=== PATIENT | female | born 1960 | race Caucasian/White ===

== ENCOUNTER 2021-08-29 14:47 | Inpatient (IN) | payer MEDICAID ==
[~2021-08-29] VITALS: Ht 167.6 cm; Wt 48.0 kg
[2021-08-29] MEDS ORDERED: vancomycin 250MG/10ML UD oral solution 10ML BOTTLE PO STA (15:02)
--- NOTE | 2021-08-29 15:02 | NUR ---
THE ONLY PERSON THAT HAVE ANY INFO ON PT IS STEFFANIE DESAI PT SISTER [phone]
[2021-08-29] MEDS ORDERED: vancomycin 125mg/5ml ORAL solution 5ml UD oral syringe PO STA (15:05)
[2021-08-29 15:24] LABS: BASOPHILS # (AUTO) 0.2 X10'3 (0-0.2); BASOPHILS % (AUTO) 1.3 % (0-1); EOSINOPHILS # (AUTO) 0.1 X10'3 (0-0.9); EOSINOPHILS % (AUTO) 1.1 % (0-6); HEMATOCRIT 27.8 % (35.0-45.0); HEMOGLOBIN 8.9 g/dl (12.0-16.0); LYMPHOCYTES # (AUTO) 1.7 X10'3 (1.1-4.8); MEAN CORPUSCULAR HEMOGLOBIN 30.6 PG (27.0-31.0); MEAN CORPUSCULAR HGB CONC 31.9 g/dL (33.0-36.5); MEAN CORPUSCULAR VOLUME 96.1 FL (78-98); MEAN PLATELET VOLUME 7.9 FL (7.4-10.4); MONOCYTES % (AUTO) 8.1 % (2-12); NEUTROPHILS # (AUTO) 9.3 X10'3 (1.8-7.7); NEUTROPHILS % (AUTO) 75.5 % (42-75); PLATELET COUNT 301 X10'3 (140-440); RED BLOOD COUNT 2.89 X10'6 (4.20-5.60); RED CELL DISTRIBUTION WIDTH 17.1 % (11.5-14.5); WHITE BLOOD COUNT 12.3 X10'3 (4.5-11.0)
[2021-08-29 15:56] LABS: ALANINE AMINOTRANSFERASE 32 U/L (12-78); ALBUMIN 2.2 G/DL (3.4-5.0); ALBUMIN/GLOBULIN RATIO 0.4 (1.1-1.5); ANION GAP 13 (8-16); ASPARTATE AMINO TRANSFERASE 64 U/L (10-37); BILIRUBIN,TOTAL 0.5 MG/DL (0.1-1.0); BLOOD UREA NITROGEN 18 MG/DL (7-18); BUN/CREATININE RATIO 20.9 (6.6-38.0); CALCIUM 9.2 MG/DL (8.5-10.1); CHLORIDE 100 MMOL/L (99-107); CREATININE 0.86 MG/DL (0.40-0.90); GLUCOSE 98 MG/DL (70-104); SODIUM 138 MMOL/L (135-145); TOTAL CARBON DIOXIDE 25.4 MMOL/L (24-32); TOTAL PROTEIN 7.5 G/DL (6.4-8.2); eGFR 67 ML/MIN
[2021-08-29 16:36] LABS: ALKALINE PHOSPHATASE 1892 IU/L (46-116)
[2021-08-29] MEDS ORDERED: normal saline 1000ML IV soln IV ONE (17:05)
--- NOTE | 2021-08-29 17:19 | NUR ---
called pharmacy for vancomycin oral med sent a tech to get te meds ,pt going to ct scan ,will start the iv onces pt is back .
[2021-08-29 18:28] LABS: CLARITY,URINE TURBID (Clear); COLOR,URINE YELLOW (Yellow); PROTEIN,URINE 100 mg/dl (Neg); UA COLLECTION TYPE STRAIGHT CATH
[2021-08-29 18:29] LABS: GLUCOSE, URINE NEGATIVE (Neg); KETONES,URINE NEGATIVE (Neg); LEUKOCYTE ESTERASE ,URINE MODERATE (Neg); NITRITES, URINE POSITIVE (Neg); OCCULT BLOOD,URINE LARGE (Neg); UROBILINOGEN,URINE 0.2 E.U/dL (0.2-1.0)
[2021-08-29 18:31] LABS: SQUAMOUS EPITHELIAL CELL,UR MODERATE /LPF (FEW); TRANSITIONAL EPI CELLS,URINE FEW /HPF
[2021-08-29 18:32] LABS: BACTERIA,URINE 4+ /HPF (Neg); WBC,URINE TNTC /HPF (0-4)
[2021-08-29 18:48] LABS: URINE AMPHETAMINE SCREEN NEGATIVE (Neg); URINE BARBITUATE SCREEN NEGATIVE (Neg); URINE BENZODIAZEPINES SCREEN NEGATIVE (Neg); URINE CANNABINOID SCREEN POSITIVE (Neg); URINE COCAINE SCREEN NEGATIVE (Neg); URINE METHADONE SCREEN NEGATIVE (Neg); URINE OPIATE SCREEN POSITIVE (Neg); URINE PHENCYCLIDINE SCREEN NEGATIVE (Neg)
--- NOTE | 2021-08-29 19:10 | NUR ---
SISTER, STEFFANIE, IS AT BEDSIDE. DR ELENA IS AT BEDSIDE EXAMINING PT. PT IS CRYING AND REQUESTING PAIN MEDICATION. NO OTHER COMPLAINTS AT PRESENT. FLUIDS ARE RUNNING. SISTER WILL GET PT'S MED LIST
--- NOTE | 2021-08-29 19:10 | NUR ---
Todd chávez in [facility] - 08/29/21 at 1910 by ALEX1 DARLINE GOLDEN
[2021-08-29] MEDS ORDERED: morphine 2 MG/ML inj. syringe IV ONE (19:15)
[2021-08-29] MEDS ORDERED: mag hydrox/Alum hydrox/simeth 30ml oral suspension PO PRN (19:30)
[2021-08-29] MEDS ORDERED: acetaminophen 325mg tablet PO PRN (19:30)
[2021-08-29] MEDS ORDERED: magnesium hydroxide 30ml (MOM) UD suspension PO PRN (19:30)
[2021-08-29] MEDS ORDERED: potassium Cl 40MEQ/1/2NS 520ml 520 ML IV PRN ×2 (19:30)
[2021-08-29] MEDS ORDERED: potassium Cl 20 mEq SR tablet PO PRN ×2 (19:30)
[2021-08-29] MEDS ORDERED: ondansetron/PF 4mg/2ml inj IV PRN (19:30)
[2021-08-29] MEDS: docusate sod 100mg capsule PO SCH (20:00)
[2021-08-29] MEDS ORDERED: heparin, porcine 5000 units/ml vial SQ SCH (20:00)
[2021-08-29] MEDS: CefTRIAXone/D5W-Rocephin 1gm 50 ML IV SCH (20:00)
[2021-08-29] MEDS: K and/or MAG REPLACEMENT MC SCH (20:00)
[2021-08-29] MEDS ORDERED: CefTRIAXone/D5W-Rocephin 1gm 50 ML IV ONE (20:10)
[2021-08-29] MEDS ORDERED: CYCL5TAB79 PO (20:41)
[2021-08-29] MEDS ORDERED: APIX2.5T PO (20:41)
[2021-08-29] MEDS ORDERED: MORP-92 PO (20:41)
[2021-08-29] MEDS ORDERED: LYR75C PO (20:41)
[2021-08-29] MEDS ORDERED: ONDA-103 PO (20:41)
[2021-08-29] MEDS ORDERED: OXYC10TA47 PO (20:41)
[2021-08-29] MEDS: potassium Cl 20mEq in NS 1,000 ML IV SCH (20:53)
[2021-08-29] MEDS: vancomycin 125mg/5ml ORAL solution 5ml UD oral syringe PO SCH (21:42)
[2021-08-29] MEDS: oxyCODONE IR 5mg (immed. release) tablet PO PRN (21:43)
--- NOTE | 2021-08-29 21:44 | NUR ---
PT SLEEPING COMFORTABLE. 3 ATTEMPTS WERE MADE TO START A SECOND LINE. ONLY HAS A #20 ON RIGHT AC.
[2021-08-30] MEDS: vancomycin 125mg/5ml ORAL solution 5ml UD oral syringe PO SCH ×2 (01:59→07:50)
[2021-08-30] MEDS: morphine 2 MG/ML inj. syringe IV PRN ×2 (02:00→22:29)
[2021-08-30 02:13] VITALS: BP 133/76
[2021-08-30] MEDS: oxyCODONE IR 5mg (immed. release) tablet PO PRN (04:54)
[2021-08-30] MEDS: potassium Cl 20mEq in NS 1,000 ML IV SCH ×2 (05:30→13:47)
[2021-08-30 07:37] VITALS: BP 116/71
[2021-08-30] MEDS: docusate sod 100mg capsule PO SCH ×2 (07:44→18:36)
[2021-08-30] MEDS: pregabalin 75mg capsule PO SCH ×2 (07:50→21:18)
[2021-08-30] MEDS: morphine ER 15mg tablet PO SCH ×2 (07:50→21:18)
[2021-08-30] MEDS: apixaban 2.5mg tablet PO SCH ×2 (07:51→21:18)
[2021-08-30] MEDS: K and/or MAG REPLACEMENT MC SCH ×2 (08:00→20:00)
[2021-08-30 11:00] VITALS: BP 134/88
[2021-08-30 11:08] LABS: C DIFF ANTIGEN NEGATIVE (NEGATIVE); C DIFF SPECIMEN=DIARRHEA? ACCEPTABLE; C DIFFICILE TOXINS A&B NEGATIVE (Neg)
[2021-08-30 11:31] LABS: BASOPHILS # (AUTO) 0.1 X10'3 (0-0.2); BASOPHILS % (AUTO) 0.8 % (0-1); EOSINOPHILS # (AUTO) 0.1 X10'3 (0-0.9); EOSINOPHILS % (AUTO) 0.9 % (0-6); HEMATOCRIT 26.7 % (35.0-45.0); HEMOGLOBIN 8.6 g/dl (12.0-16.0); LYMPHOCYTES # (AUTO) 1.3 X10'3 (1.1-4.8); MEAN CORPUSCULAR HEMOGLOBIN 31.1 PG (27.0-31.0); MEAN CORPUSCULAR HGB CONC 32.1 g/dL (33.0-36.5); MEAN PLATELET VOLUME 8.1 FL (7.4-10.4); MONOCYTES # (AUTO) 0.7 X10'3 (0-0.9); MONOCYTES % (AUTO) 7.3 % (2-12); NEUTROPHILS # (AUTO) 7.6 X10'3 (1.8-7.7); PLATELET COUNT 249 X10'3 (140-440); RED BLOOD COUNT 2.75 X10'6 (4.20-5.60); RED CELL DISTRIBUTION WIDTH 16.9 % (11.5-14.5); WHITE BLOOD COUNT 9.8 X10'3 (4.5-11.0)
[2021-08-30 11:55] LABS: ALANINE AMINOTRANSFERASE 30 U/L (12-78); ALBUMIN/GLOBULIN RATIO 0.4 (1.1-1.5); ANION GAP 14 (8-16); ASPARTATE AMINO TRANSFERASE 59 U/L (10-37); BILIRUBIN,TOTAL 0.4 MG/DL (0.1-1.0); BLOOD UREA NITROGEN 13 MG/DL (7-18); BUN/CREATININE RATIO 18.3 (6.6-38.0); CALCIUM 8.3 MG/DL (8.5-10.1); CHLORIDE 106 MMOL/L (99-107); CREATININE 0.71 MG/DL (0.40-0.90); GLUCOSE 79 MG/DL (70-104); POTASSIUM 4.2 MMOL/L (3.5-5.1); SODIUM 142 MMOL/L (135-145); TOTAL CARBON DIOXIDE 22.4 MMOL/L (24-32); eGFR 84 ML/MIN
[2021-08-30 12:01] LABS: ALKALINE PHOSPHATASE 1464 IU/L (46-116)
--- NOTE | 2021-08-30 13:25 | NUR ---
I was about to hook another IVF for this patient after my charge nurse Lenore told me that I need to hang a new IV bag, within like 2-3 minutes Lenore came by to me to check my patient in her room as she landed on the floor. When I went to the room Citlali CASTILLO and Corine RN were both in the room assisting my patient back to bed. Patient found sitting on the floor while holding on to the bedside table. Patient admitted that she got dizzy prior to the event and that she was trying to get to the bedside commode. Patient has stool on her gown, we cleaned her up and put a new gown on. There were no noted injury upon assessing her. Vital signs was taken after getting her back to bed. Tab alarm was placed and fall risk armband applied. 13:43 - paged Dr. Leonard regarding the above
--- NOTE | 2021-08-30 14:07 | NUR ---
Low BMI Screen: Pt admit DX AMS, UTI, and diarrhea hx adrenal and stage IV lung CA on chemotherapy last 3 weeks ago per EMR. C.diff negative per EMR. BMI 16.2 though pending scaled wt at this time w/ no prior wt hx. Pt AOx1 per EMR sleeping during RD visit. Pt does have visible temporal and bilateral arms wasting present. RD contacted pt sister/caregiver Elyssa who reports has been taking care of pt past 11 days [employer]. Elyssa reports pt has had low appetite w/ persistent abdominal pain/diarrhea mainly eats only after encouragement. Elyssa reports pt does drink shakes on occasion and likes broccoli soup as well as spaghetti. Will add milkshakes TIDWM for additional kcals; dietary notified. PO pending on regular diet this admit. Given predicted suboptimal intake hx in addition to visible muscle/fat wasting present pt meets minimum severe malnutrition criteria; MD notified. Will continue to monitor for additional nutrition intervention needs pending PO hx this admit. Rec: 1. continue regular diet; encourage PO 2. milkshakes TIDWM since pt drinks per caregiver; encourage PO 3. monitor for ONS needs pending further PO hx this admit 4. bowel care per rx; consider routine anti-diarrheal per MD discretion 5. scaled wt this admit; subsequent weekly wts Addendum: 08/30/21 at [address] Amended: Links added.
--- NOTE | 2021-08-30 18:10 | NUR ---
Patient in room ZENA 341. [facility] and had the opportunity to ask questions and assume patient care.
[2021-08-30 20:00] VITALS: BP 128/85
[2021-08-30] MEDS ORDERED: lactobacillus rhamnosus 10,000 MMU CELLS/CAPSULE PO SCH (20:00)
[2021-08-30] MEDS: CefTRIAXone/D5W-Rocephin 1gm 50 ML IV SCH (21:18)
[2021-08-30] MEDS ORDERED: mag hydrox/Alum hydrox/simeth 30ml oral suspension NG PRN (22:04)
[2021-08-30] MEDS ORDERED: magnesium hydroxide 30ml (MOM) UD suspension NG PRN (22:04)
[2021-08-30] MEDS ORDERED: potassium Cl 20 mEq SR tablet NG PRN ×2 (22:05→22:06)
[2021-08-30] MEDS ORDERED: acetaminophen 325mg tablet NG PRN (22:06)
[2021-08-31] VITALS: BP 128/85
[2021-08-31] MEDS: potassium Cl 20mEq in NS 1,000 ML IV SCH ×3 (02:08→22:47)
[2021-08-31] MEDS: morphine 2 MG/ML inj. syringe IV PRN ×3 (02:14→21:23)
[2021-08-31 02:41] LABS: BASOPHILS # (AUTO) 0.1 X10'3 (0-0.2); EOSINOPHILS # (AUTO) 0.2 X10'3 (0-0.9); EOSINOPHILS % (AUTO) 1.8 % (0-6); HEMATOCRIT 22.3 % (35.0-45.0); HEMOGLOBIN 7.1 g/dl (12.0-16.0); LYMPHOCYTES # (AUTO) 1.3 X10'3 (1.1-4.8); LYMPHOCYTES % (AUTO) 13.7 % (21-51); MEAN CORPUSCULAR HEMOGLOBIN 30.6 PG (27.0-31.0); MEAN CORPUSCULAR VOLUME 95.6 FL (78-98); MONOCYTES # (AUTO) 0.7 X10'3 (0-0.9); MONOCYTES % (AUTO) 7.8 % (2-12); NEUTROPHILS % (AUTO) 75.7 % (42-75); PLATELET COUNT 238 X10'3 (140-440); RED BLOOD COUNT 2.33 X10'6 (4.20-5.60); WHITE BLOOD COUNT 9.3 X10'3 (4.5-11.0)
[2021-08-31 03:13] LABS: ALANINE AMINOTRANSFERASE 11 U/L (12-78); ALBUMIN 1.8 G/DL (3.4-5.0); ALBUMIN/GLOBULIN RATIO 0.4 (1.1-1.5); ANION GAP 12 (8-16); ASPARTATE AMINO TRANSFERASE 50 U/L (10-37); BILIRUBIN,TOTAL 0.3 MG/DL (0.1-1.0); BLOOD UREA NITROGEN 10 MG/DL (7-18); BUN/CREATININE RATIO 16.1 (6.6-38.0); CHLORIDE 107 MMOL/L (99-107); CREATININE 0.62 MG/DL (0.40-0.90); GLUCOSE 91 MG/DL (70-104); POTASSIUM 3.9 MMOL/L (3.5-5.1); SODIUM 142 MMOL/L (135-145); TOTAL CARBON DIOXIDE 22.8 MMOL/L (24-32); TOTAL PROTEIN 6.2 G/DL (6.4-8.2); eGFR > 90 ML/MIN
[2021-08-31 03:36] LABS: ALKALINE PHOSPHATASE 1372 IU/L (46-116)
--- NOTE | 2021-08-31 05:47 | NUR ---
This RN informed Dr Jackson via telephone of pt's drop in Hgb and Hct. MD will review chart and place orders as needed. Pt in no apparent distress.
--- NOTE | 2021-08-31 06:24 | NUR ---
Problems reprioritized. Patient report given, questions answered & plan of care reviewed with ANNA Peña .
--- NOTE | 2021-08-31 06:30 | NUR ---
Patient in room ZENA 357b. I have received report from Antoinette CASTILLO and had the opportunity to ask questions and assume patient care.
[2021-08-31 07:00] VITALS: BP 121/80
[2021-08-31] MEDS: K and/or MAG REPLACEMENT MC SCH ×2 (08:00→20:00)
[2021-08-31] MEDS: morphine ER 15mg tablet PO SCH ×2 (09:59→19:57)
[2021-08-31] MEDS: docusate sodium 100mg/10ml UD cup NG SCH ×2 (09:59→19:57)
[2021-08-31] MEDS: lactobacillus rhamnosus 10,000 MMU CELLS/CAPSULE NG SCH ×2 (10:00→19:57)
[2021-08-31] MEDS: pregabalin 75mg capsule NG SCH ×2 (10:00→19:57)
[2021-08-31] MEDS: apixaban 2.5mg tablet NG SCH ×2 (10:00→19:57)
[2021-08-31 12:00] VITALS: BP 124/85
--- NOTE | 2021-08-31 16:13 | NUR ---
PAGER ID: [phone] MESSAGE: Casey Surg [phone] RE: [id number] Jared Marie calling sister for care. Found the phone number in her chart. Phuong is working on it.
--- NOTE | 2021-08-31 18:30 | NUR ---
Patient in room ZENA 357b. I have received report from ANNA Peña and had the opportunity to ask questions and assume patient care.
[2021-08-31] MEDS: CefTRIAXone/D5W-Rocephin 1gm 50 ML IV SCH (19:56)
[2021-08-31] MEDS ORDERED: LORazepam 2 mg/ml vial IV ONE (23:25)
[2021-09-01] VITALS: BP 139/89
[2021-09-01] MEDS: morphine 2 MG/ML inj. syringe IV PRN ×2 (03:34→12:10)
[2021-09-01 06:30] VITALS: BP 141/80
--- NOTE | 2021-09-01 06:40 | NUR ---
Patient in room ZENA 357. I have received report from ANNA Curry and had the opportunity to ask questions and assume patient care.
[2021-09-01] MEDS: potassium Cl 20mEq in NS 1,000 ML IV SCH ×2 (07:30→14:00)
--- NOTE | 2021-09-01 11:00 | NUR ---
Pt refused VS check
[2021-09-01] MEDS: docusate sodium 100mg/10ml UD cup NG SCH ×3 (11:30→20:00)
[2021-09-01] MEDS: lactobacillus rhamnosus 10,000 MMU CELLS/CAPSULE NG SCH ×3 (11:30→20:00)
[2021-09-01] MEDS: apixaban 2.5mg tablet NG SCH ×3 (11:31→20:00)
[2021-09-01] MEDS: morphine ER 15mg tablet PO SCH ×3 (11:31→20:00)
[2021-09-01] MEDS: pregabalin 75mg capsule NG SCH ×3 (11:31→20:00)
[2021-09-01 11:34] LABS: BASOPHILS # (AUTO) 0.3 X10'3 (0-0.2); BASOPHILS % (AUTO) 2.4 % (0-1); EOSINOPHILS # (AUTO) 0.1 X10'3 (0-0.9); EOSINOPHILS % (AUTO) 0.4 % (0-6); HEMATOCRIT 29.2 % (35.0-45.0); HEMOGLOBIN 9.1 g/dl (12.0-16.0); LYMPHOCYTES # (AUTO) 0.9 X10'3 (1.1-4.8); LYMPHOCYTES % (AUTO) 7.6 % (21-51); MEAN CORPUSCULAR HEMOGLOBIN 30.4 PG (27.0-31.0); MEAN CORPUSCULAR HGB CONC 31.3 g/dL (33.0-36.5); MEAN CORPUSCULAR VOLUME 97.2 FL (78-98); MONOCYTES # (AUTO) 0.6 X10'3 (0-0.9); MONOCYTES % (AUTO) 4.9 % (2-12); NEUTROPHILS # (AUTO) 9.7 X10'3 (1.8-7.7); NEUTROPHILS % (AUTO) 84.7 % (42-75); PLATELET COUNT 241 X10'3 (140-440); RED CELL DISTRIBUTION WIDTH 17.1 % (11.5-14.5); WHITE BLOOD COUNT 11.4 X10'3 (4.5-11.0)
[2021-09-01 11:55] LABS: ALANINE AMINOTRANSFERASE 23 U/L (12-78); ALBUMIN 2.1 G/DL (3.4-5.0); ALBUMIN/GLOBULIN RATIO 0.4 (1.1-1.5); ANION GAP 9 (8-16); ASPARTATE AMINO TRANSFERASE 44 U/L (10-37); BILIRUBIN,TOTAL 0.5 MG/DL (0.1-1.0); BLOOD UREA NITROGEN 6 MG/DL (7-18); BUN/CREATININE RATIO 8.6 (6.6-38.0); CALCIUM 9.2 MG/DL (8.5-10.1); CHLORIDE 107 MMOL/L (99-107); GLUCOSE 97 MG/DL (70-104); POTASSIUM 4.5 MMOL/L (3.5-5.1); SODIUM 137 MMOL/L (135-145); TOTAL CARBON DIOXIDE 20.9 MMOL/L (24-32); TOTAL PROTEIN 7.2 G/DL (6.4-8.2); eGFR 85 ML/MIN
[2021-09-01] MEDS: K and/or MAG REPLACEMENT MC SCH ×2 (12:06→19:19)
--- NOTE | 2021-09-01 12:06 | NUR ---
Paged PT for evaluation by PT for discharge. Also, Ingrid with case management is going to call patients sister to see if she can take care of patient.
[2021-09-01 12:18] LABS: ALKALINE PHOSPHATASE 1556 IU/L (46-116)
[2021-09-01] MEDS ORDERED: LORazepam 2 mg/ml vial IV ONE (14:10)
--- NOTE | 2021-09-01 18:55 | NUR ---
Problems reprioritized. Patient report given, questions answered & plan of care reviewed with ANNA Curry.
[2021-09-01 20:00] VITALS: BP 126/89
[2021-09-01] MEDS: CefTRIAXone/D5W-Rocephin 1gm 50 ML IV SCH (20:00)
[2021-09-02] VITALS: BP 123/81
[2021-09-02] MEDS: LORazepam 2 mg/ml vial IV PRN ×2 (02:06→15:31)
[2021-09-02] MEDS: potassium Cl 20mEq in NS 1,000 ML IV SCH ×3 (02:10→15:34)
--- NOTE | 2021-09-02 06:25 | NUR ---
Problems reprioritized. Patient report given, questions answered & plan of care reviewed with ANNA Ace .
--- NOTE | 2021-09-02 06:25 | NUR ---
Patient in room ZENA 357. I have received report from ANNA Curry and had the opportunity to ask questions and assume patient care.
[2021-09-02 06:30] VITALS: BP 123/80
[2021-09-02 07:05] LABS: BASOPHILS # (AUTO) 0.1 X10'3 (0-0.2); BASOPHILS % (AUTO) 0.8 % (0-1); EOSINOPHILS # (AUTO) 0.1 X10'3 (0-0.9); EOSINOPHILS % (AUTO) 0.6 % (0-6); HEMATOCRIT 24.5 % (35.0-45.0); HEMOGLOBIN 7.8 g/dl (12.0-16.0); LYMPHOCYTES # (AUTO) 1.2 X10'3 (1.1-4.8); LYMPHOCYTES % (AUTO) 11.1 % (21-51); MEAN CORPUSCULAR HGB CONC 31.9 g/dL (33.0-36.5); MEAN CORPUSCULAR VOLUME 97.1 FL (78-98); MEAN PLATELET VOLUME 8.6 FL (7.4-10.4); MONOCYTES # (AUTO) 0.9 X10'3 (0-0.9); MONOCYTES % (AUTO) 8.6 % (2-12); NEUTROPHILS # (AUTO) 8.4 X10'3 (1.8-7.7); NEUTROPHILS % (AUTO) 78.9 % (42-75); PLATELET COUNT 224 X10'3 (140-440); RED BLOOD COUNT 2.52 X10'6 (4.20-5.60); RED CELL DISTRIBUTION WIDTH 17.7 % (11.5-14.5); WHITE BLOOD COUNT 10.6 X10'3 (4.5-11.0)
[2021-09-02 07:07] LABS: ALANINE AMINOTRANSFERASE 16 U/L (12-78); ALBUMIN 1.7 G/DL (3.4-5.0); ALBUMIN/GLOBULIN RATIO 0.4 (1.1-1.5); ANION GAP 11 (8-16); ASPARTATE AMINO TRANSFERASE 38 U/L (10-37); BILIRUBIN,TOTAL 0.5 MG/DL (0.1-1.0); BLOOD UREA NITROGEN 5 MG/DL (7-18); BUN/CREATININE RATIO 7.2 (6.6-38.0); CALCIUM 8.5 MG/DL (8.5-10.1); CHLORIDE 108 MMOL/L (99-107); CREATININE 0.69 MG/DL (0.40-0.90); GLUCOSE 78 MG/DL (70-104); POTASSIUM 3.9 MMOL/L (3.5-5.1); SODIUM 138 MMOL/L (135-145); TOTAL CARBON DIOXIDE 19.4 MMOL/L (24-32); TOTAL PROTEIN 5.9 G/DL (6.4-8.2); eGFR 86 ML/MIN
[2021-09-02 07:34] LABS: ALKALINE PHOSPHATASE 1306 IU/L (46-116)
[2021-09-02] MEDS: K and/or MAG REPLACEMENT MC SCH ×2 (07:58→19:27)
[2021-09-02] MEDS: docusate sodium 100mg/10ml UD cup NG SCH ×2 (09:25→20:00)
[2021-09-02] MEDS: pregabalin 75mg capsule NG SCH ×2 (09:26→20:00)
[2021-09-02] MEDS: morphine ER 15mg tablet PO SCH ×2 (09:26→20:00)
[2021-09-02] MEDS: apixaban 2.5mg tablet NG SCH ×2 (09:26→20:00)
[2021-09-02] MEDS: lactobacillus rhamnosus 10,000 MMU CELLS/CAPSULE NG SCH ×2 (09:26→20:00)
[2021-09-02 11:00] VITALS: BP 126/79
--- NOTE | 2021-09-02 11:37 | NUR ---
Reassessment: Pt noted to be confused A&O x 1 and per RN has been uncooperative and refuses most care. Pt has been refusing most meals and will likely refuse ONS per RN. RN states that Pt will also likely refuse feeding tube though MD is aware of these issues. Pt continues w/ diarrhea, LBM 09/01. Limited nutrition interventions at this time given pt status, will continue to monitor. Rec: 1. continue regular diet; encourage PO 2. milkshakes TIDWM since pt drinks per caregiver; encourage PO 3. monitor for ONS needs if pt cognition improves 4. bowel care per rx; consider routine anti-diarrheal per MD discretion 5. scaled wt this admit; subsequent weekly wts Addendum: 09/02/21 at [address] Amended: Links added.
[2021-09-02 18:00] VITALS: BP 140/91
--- NOTE | 2021-09-02 18:15 | NUR ---
Problems reprioritized. Patient report given, questions answered & plan of care reviewed with ANNA Curry.
[2021-09-02] MEDS: CefTRIAXone/D5W-Rocephin 1gm 50 ML IV SCH (20:41)
[2021-09-03] VITALS (10 sets, daily range): BP systolic 109–138; BP diastolic 64–92
--- NOTE | 2021-09-03 04:32 | NUR ---
PAGER ID: [phone] MESSAGE: Myranda Mcnair 357B Pt HR has been 130's/140's, please call to clarify covid test orders. ANNA [facility] 5458
--- NOTE | 2021-09-03 04:40 | NUR ---
Pt with elevated HR with hx of Afib overnight. underground repairer, Amie paged Dr Leonard for orders to treat. Dr Leonard was informed by this RN that patient refused/is uncooperative with all PO medications and requested IV medications to treat, an EKG to determine rhythm and/or transfer to telemetry for monitoring and appropriate treatment. Dr Leonard states she is will only order PO medications for this patient without an appropriate monitor and states that she will not order EKG or transfer to telemetry for monitoring. This RN again requested IV medication, EKG or transfer for monitoring due to patient being unable/uncooperative with any PO medications or food. This RN attempted to get patient to drink water to reassess PO possibility. Pt remains uncooperative. underground repairer informed and report will be given to day shift RN and Charge to request re-evaluation of treatment/monitoring. HR remains 130s-140s and patient remains altered from this RNs baseline assessment this week. RN to follow as appropriate.
[2021-09-03 05:58] LABS: BASOPHILS # (AUTO) 0.1 X10'3 (0-0.2); BASOPHILS % (AUTO) 0.6 % (0-1); EOSINOPHILS % (AUTO) 0.3 % (0-6); HEMATOCRIT 23.3 % (35.0-45.0); HEMOGLOBIN 7.9 g/dl (12.0-16.0); LYMPHOCYTES % (AUTO) 9.8 % (21-51); MEAN CORPUSCULAR HEMOGLOBIN 31.5 PG (27.0-31.0); MEAN CORPUSCULAR HGB CONC 33.7 g/dL (33.0-36.5); MEAN CORPUSCULAR VOLUME 93.3 FL (78-98); MEAN PLATELET VOLUME 7.9 FL (7.4-10.4); MONOCYTES # (AUTO) 0.8 X10'3 (0-0.9); MONOCYTES % (AUTO) 7.6 % (2-12); NEUTROPHILS # (AUTO) 8.4 X10'3 (1.8-7.7); NEUTROPHILS % (AUTO) 81.7 % (42-75); PLATELET COUNT 205 X10'3 (140-440); RED CELL DISTRIBUTION WIDTH 16.8 % (11.5-14.5); WHITE BLOOD COUNT 10.3 X10'3 (4.5-11.0)
[2021-09-03 06:29] LABS: ALANINE AMINOTRANSFERASE 21 U/L (12-78); ALBUMIN 1.9 G/DL (3.4-5.0); ALBUMIN/GLOBULIN RATIO 0.4 (1.1-1.5); ANION GAP 16 (8-16); ASPARTATE AMINO TRANSFERASE 41 U/L (10-37); BILIRUBIN,TOTAL 0.5 MG/DL (0.1-1.0); BLOOD UREA NITROGEN 6 MG/DL (7-18); BUN/CREATININE RATIO 8.8 (6.6-38.0); CALCIUM 8.7 MG/DL (8.5-10.1); CHLORIDE 108 MMOL/L (99-107); CREATININE 0.68 MG/DL (0.40-0.90); GLUCOSE 82 MG/DL (70-104); POTASSIUM 3.2 MMOL/L (3.5-5.1); SODIUM 143 MMOL/L (135-145); TOTAL CARBON DIOXIDE 19.2 MMOL/L (24-32); TOTAL PROTEIN 6.5 G/DL (6.4-8.2); eGFR 88 ML/MIN
[2021-09-03 06:51] LABS: ALKALINE PHOSPHATASE 1036 IU/L (46-116)
--- NOTE | 2021-09-03 06:55 | NUR ---
Problems reprioritized. Patient report given, questions answered & plan of care reviewed with ANNA Tellez .
[2021-09-03] MEDS: diltiazem SR 60mg capsule (twice daily) PO SCH ×2 (07:00→08:00)
[2021-09-03] MEDS: pregabalin 75mg capsule NG SCH ×2 (08:00→22:11)
[2021-09-03] MEDS: apixaban 2.5mg tablet NG SCH ×3 (08:00→22:11)
[2021-09-03] MEDS: morphine ER 15mg tablet PO SCH ×2 (08:00→20:00)
[2021-09-03] MEDS: lactobacillus rhamnosus 10,000 MMU CELLS/CAPSULE NG SCH ×2 (08:00→22:11)
[2021-09-03] MEDS: docusate sodium 100mg/10ml UD cup NG SCH ×2 (08:00→20:00)
[2021-09-03] MEDS: K and/or MAG REPLACEMENT MC SCH ×3 (08:00→20:00)
--- NOTE | 2021-09-03 08:35 | NUR ---
PAGER ID: [phone] MESSAGE: [id number] Jared Soriano: patient's heart rate is 122. she was in the 130's-140's for noc shift. RN got an order for PO metoprolol but patient has been refusing all PO meds. She's very somnolent. thanks, berenice 0149
[2021-09-03] MEDS ORDERED: diltiazem 5mg/ml 5ml inj. IV ONE (08:45)
[2021-09-03] MEDS: potassium Cl 20mEq in NS 1,000 ML IV SCH (09:22)
[2021-09-03] MEDS ORDERED: magnesium 2GM in 50ml NS 50 ML IV PRN (10:10)
[2021-09-03] MEDS ORDERED: magnesium Cl slow-release 64mg tablet PO PRN (10:10)
[2021-09-03] MEDS ORDERED: magnesium 4gm in 100ml NS 100 ML IV PRN (10:10)
[2021-09-03] MEDS ORDERED: potassium Cl 20 mEq SR tablet PO PRN ×2 (10:10)
--- NOTE | 2021-09-03 10:40 | NUR ---
Called report to ANNA Frederick. The patient is waiting to be transferred once the room 3012C is cleaned. vocal music teacher will notify me when the room is ready.
[2021-09-03] MEDS: diltiazem-NS 100mg/100ml 100 ML IV SCH ×2 (11:45→23:38)
--- NOTE | 2021-09-03 11:57 | NUR ---
Patient transferred to telemetry floor. ANNA Frederick in room. Addendum: 09/03/21 at 1158 by Rosalinda Uriostegui RN All belongings taken from room. Patient stable for transfer.
--- NOTE | 2021-09-03 12:15 | NUR ---
after receiving patient this afternoon I did not feel her vitals supported me giving both the cardizem push and starting the cardizem gtt. I non administered it and started the drip.
--- NOTE | 2021-09-03 12:38 | NUR ---
Albertinam IV wasted with Sheila RN after non admin due to change in patient condition upon arrival upon the unit.
--- NOTE | 2021-09-03 17:48 | NUR ---
[place]rient[place] documentation: I have reviewed and agree with all interventions, assessments performed and documented by Nya CASTILLO. [place] Medication Administration: For this medication-pass time frame, all medication were reviewed, dispensed, administered and documented per hospital policy by Nya CASTILLO.
--- NOTE | 2021-09-03 18:00 | NUR ---
Patient in room PCU 3012. I have received report from Shagufta and had the opportunity to ask questions and assume patient care.
--- NOTE | 2021-09-03 18:41 | NUR ---
Problems reprioritized. Patient report given, questions answered & plan of care reviewed with Noelle RN. Patient resting in bed in no acute distress.
[2021-09-03] MEDS: LORazepam 2 mg/ml vial IV PRN (23:26)
[2021-09-03] MEDS: CefTRIAXone/D5W-Rocephin 1gm 50 ML IV SCH (23:48)
[2021-09-04 02:00] VITALS: BP 95/52
--- NOTE | 2021-09-04 06:00 | NUR ---
Patient in room PCU 3012. I have received report from Noelle and had the opportunity to ask questions and assume patient care.
--- NOTE | 2021-09-04 06:07 | NUR ---
Problems reprioritized. Patient report given, questions answered & plan of care reviewed with Shagufta.
--- NOTE | 2021-09-04 06:23 | NUR ---
Patient in room PCU 3012. I have received report from Noelle CASTILLO and had the opportunity to ask questions and assume patient care.
[2021-09-04 07:00] VITALS: BP 117/80
[2021-09-04 07:15] LABS: MAGNESIUM 1.6 MG/DL (1.5-2.4)
--- NOTE | 2021-09-04 07:33 | NUR ---
Critical Lab Value Page Sent promotional table spacer PAGER ID: [phone] MESSAGE: Maggie Kent2C, Myranda Lau: Critical lab value, potassium 3.0. Will replace per protocol. [place] [id number]
[2021-09-04] MEDS: K and/or MAG REPLACEMENT MC SCH ×4 (08:00→20:00)
[2021-09-04 08:18] LABS: BASOPHILS # (AUTO) 0.1 X10'3 (0-0.2); BASOPHILS % (AUTO) 0.7 % (0-1); EOSINOPHILS # (AUTO) 0.1 X10'3 (0-0.9); EOSINOPHILS % (AUTO) 1.2 % (0-6); HEMOGLOBIN 7.3 g/dl (12.0-16.0); LYMPHOCYTES # (AUTO) 1.1 X10'3 (1.1-4.8); MEAN CORPUSCULAR HEMOGLOBIN 30.6 PG (27.0-31.0); MEAN CORPUSCULAR HGB CONC 33.1 g/dL (33.0-36.5); MEAN CORPUSCULAR VOLUME 92.4 FL (78-98); MONOCYTES # (AUTO) 0.7 X10'3 (0-0.9); MONOCYTES % (AUTO) 8.2 % (2-12); NEUTROPHILS # (AUTO) 6.9 X10'3 (1.8-7.7); NEUTROPHILS % (AUTO) 77.9 % (42-75); PLATELET COUNT 180 X10'3 (140-440); RED BLOOD COUNT 2.38 X10'6 (4.20-5.60); RED CELL DISTRIBUTION WIDTH 16.8 % (11.5-14.5); WHITE BLOOD COUNT 8.9 X10'3 (4.5-11.0)
[2021-09-04 08:33] LABS: ALANINE AMINOTRANSFERASE 17 U/L (12-78); ALBUMIN 1.8 G/DL (3.4-5.0); ALBUMIN/GLOBULIN RATIO 0.4 (1.1-1.5); ALKALINE PHOSPHATASE 951 IU/L (46-116); ANION GAP 18 (8-16); ASPARTATE AMINO TRANSFERASE 34 U/L (10-37); BILIRUBIN,TOTAL 0.5 MG/DL (0.1-1.0); BLOOD UREA NITROGEN 8 MG/DL (7-18); BUN/CREATININE RATIO 14.3 (6.6-38.0); CALCIUM 8.6 MG/DL (8.5-10.1); CHLORIDE 108 MMOL/L (99-107); CREATININE 0.56 MG/DL (0.40-0.90); GLUCOSE 72 MG/DL (70-104); SODIUM 145 MMOL/L (135-145); TOTAL CARBON DIOXIDE 19.2 MMOL/L (24-32); TOTAL PROTEIN 6.2 G/DL (6.4-8.2); eGFR > 90 ML/MIN
[2021-09-04 08:48] LABS: POTASSIUM 2.8 MMOL/L (3.5-5.1)
--- NOTE | 2021-09-04 08:59 | NUR ---
Critical Lab Value Page Sent promotional table spacer PAGER ID: [phone] MESSAGE: Maggie 3012C, Myranda Lau: Critical lab values: Hgb 7.3 Hct 22.0, potassium 2.8. Replacing potassium per protocol. [place] [id number]
[2021-09-04] MEDS: docusate sodium 100mg/10ml UD cup NG SCH ×2 (09:12→20:00)
[2021-09-04] MEDS: lactobacillus rhamnosus 10,000 MMU CELLS/CAPSULE NG SCH ×2 (09:12→20:33)
[2021-09-04] MEDS: pregabalin 75mg capsule NG SCH ×2 (09:12→20:32)
[2021-09-04] MEDS: morphine ER 15mg tablet PO SCH ×2 (09:12→20:00)
[2021-09-04] MEDS: apixaban 2.5mg tablet NG SCH ×2 (09:12→20:33)
[2021-09-04] MEDS: potassium Cl 40MEQ/1/2NS 520ml 520 ML IV PRN ×2 (09:25→21:59)
[2021-09-04] MEDS ORDERED: magnesium 2GM in 50ml NS 50 ML IV ONE (09:45)
[2021-09-04 11:00] VITALS: BP 127/82
--- NOTE | 2021-09-04 11:51 | NUR ---
Soham consult: No wounds documented and no wound photos in chart. Will continue to monitor. Addendum: 09/04/21 at [address] Amended: Links added.
--- NOTE | 2021-09-04 12:38 | NUR ---
Nutrition consult: Patient has already been assessed and triggered for malnutrition, see previous RD notes. Noted pt documented to have refused meals since 09/01 with total assistance since 09/03 (previously minimum assistance). Ensure Enlive TID just added to med list. Will discontinue shakes as pt previously refusing, d/w dietary. Per physical assessment pt A/O x 1 and confused with a sitter at bedside. Mechanical soft has been added to diet order. Recommend BSS with ST to determine most appropriate texture modification for pt. IF pt unable to tolerate PO intake or PO intake does not improve, recommend EN to meet estimated nutrient needs if within patient's POC. Noted pt with low K of 2.8 mg/dL, pt receiving PRN replacement. LBM 09/03, receiving routine bowel care. Will continue to follow closely. Rec: 1. Continue regular diet; texture modification per ST pending BSS 2. Ensure Enlive TIDWM 3. Assist with meals and encourage PO intake 4. Recommend EN if within patient's POC given prolonged PO intake 5. Bowel care per rx; consider routine anti-diarrheal per MD discretion 6. Scaled wt this admit; subsequent weekly wts Addendum: 09/04/21 at [address] Amended: Links added.
[2021-09-04] MEDS: lactose-reduced food (Ensure Enlive) - 237ml bottle PO SCH ×2 (13:00→18:00)
[2021-09-04] MEDS: diltiazem 30mg tablet PO SCH ×2 (14:05→20:33)
[2021-09-04 15:00] VITALS: BP 117/81
[2021-09-04] MEDS: sodium bicarbonate (8.4%) inj. 150 MEQ in dextrose 5%-water 1,000 ML IV SCH (15:45)
[2021-09-04 18:00] VITALS: BP 107/74
--- NOTE | 2021-09-04 18:11 | NUR ---
Problems reprioritized. Patient report given, questions answered & plan of care reviewed with Noelle RN. Patient in no acute distress.
--- NOTE | 2021-09-04 18:18 | NUR ---
Patient in room PCU 3012. I have received report from Shagufta and had the opportunity to ask questions and assume patient care.
[2021-09-04] MEDS: CefTRIAXone/D5W-Rocephin 1gm 50 ML IV SCH (21:18)
[2021-09-04 22:00] VITALS: BP 114/81
[2021-09-05] VITALS (7 sets, daily range): BP systolic 98–116; BP diastolic 62–77
[2021-09-05] MEDS: sodium bicarbonate (8.4%) inj. 150 MEQ in dextrose 5%-water 1,000 ML IV SCH ×2 (01:05→07:42)
[2021-09-05] MEDS: diltiazem 30mg tablet PO SCH ×4 (02:28→20:54)
--- NOTE | 2021-09-05 06:44 | NUR ---
Problems reprioritized. Patient report given, questions answered & plan of care reviewed with pat-RN.
[2021-09-05] MEDS: apixaban 2.5mg tablet NG SCH ×2 (07:45→20:53)
[2021-09-05] MEDS: pregabalin 75mg capsule NG SCH ×2 (07:45→20:53)
[2021-09-05] MEDS: morphine ER 15mg tablet PO SCH ×2 (07:46→20:54)
[2021-09-05] MEDS: docusate sodium 100mg/10ml UD cup NG SCH ×2 (07:46→20:00)
[2021-09-05] MEDS: lactobacillus rhamnosus 10,000 MMU CELLS/CAPSULE NG SCH ×2 (07:46→20:53)
[2021-09-05] MEDS: K and/or MAG REPLACEMENT MC SCH ×4 (08:00→20:52)
[2021-09-05] MEDS: lactose-reduced food (Ensure Enlive) - 237ml bottle PO SCH ×3 (08:00→18:00)
[2021-09-05 08:09] LABS: BASOPHILS # (AUTO) 0.1 X10'3 (0-0.2); BASOPHILS % (AUTO) 0.8 % (0-1); EOSINOPHILS # (AUTO) 0.3 X10'3 (0-0.9); EOSINOPHILS % (AUTO) 2.8 % (0-6); HEMATOCRIT 22.4 % (35.0-45.0); HEMOGLOBIN 7.4 g/dl (12.0-16.0); LYMPHOCYTES % (AUTO) 10.8 % (21-51); MEAN CORPUSCULAR HEMOGLOBIN 30.9 PG (27.0-31.0); MEAN CORPUSCULAR HGB CONC 32.9 g/dL (33.0-36.5); MEAN CORPUSCULAR VOLUME 93.8 FL (78-98); MEAN PLATELET VOLUME 8.5 FL (7.4-10.4); MONOCYTES # (AUTO) 0.6 X10'3 (0-0.9); MONOCYTES % (AUTO) 7.1 % (2-12); NEUTROPHILS # (AUTO) 7.2 X10'3 (1.8-7.7); NEUTROPHILS % (AUTO) 78.5 % (42-75); PLATELET COUNT 190 X10'3 (140-440); RED BLOOD COUNT 2.39 X10'6 (4.20-5.60); RED CELL DISTRIBUTION WIDTH 16.7 % (11.5-14.5); WHITE BLOOD COUNT 9.1 X10'3 (4.5-11.0)
[2021-09-05 08:38] LABS: ALANINE AMINOTRANSFERASE 17 U/L (12-78); ALBUMIN 1.7 G/DL (3.4-5.0); ALBUMIN/GLOBULIN RATIO 0.4 (1.1-1.5); ALKALINE PHOSPHATASE 894 IU/L (46-116); ANION GAP 7 (8-16); ASPARTATE AMINO TRANSFERASE 34 U/L (10-37); BILIRUBIN,TOTAL 0.4 MG/DL (0.1-1.0); BLOOD UREA NITROGEN 10 MG/DL (7-18); BUN/CREATININE RATIO 16.4 (6.6-38.0); CALCIUM 8.3 MG/DL (8.5-10.1); CHLORIDE 102 MMOL/L (99-107); CREATININE 0.61 MG/DL (0.40-0.90); FERRITIN 644 NG/ML (8-252); GLUCOSE 111 MG/DL (70-104); MAGNESIUM 2.1 MG/DL (1.5-2.4); PHOSPHORUS 2.4 MG/DL (2.3-4.5); POTASSIUM 3.7 MMOL/L (3.5-5.1); SODIUM 136 MMOL/L (135-145); TOTAL CARBON DIOXIDE 27.1 MMOL/L (24-32); eGFR > 90 ML/MIN
[2021-09-05 09:07] LABS: % IRON SATURATION 41 % (11-46); IRON 25 UG/DL (49-151); TOTAL IRON BINDING CAPACITY 61 UG/DL (259-388)
[2021-09-05] MEDS: normal saline 1000ml 1,000 ML IV SCH ×2 (09:45→23:05)
[2021-09-05] MEDS: CefTRIAXone/D5W-Rocephin 1gm 50 ML IV SCH (20:51)
[2021-09-06 02:00] VITALS: BP 107/71
[2021-09-06] MEDS: diltiazem 30mg tablet PO SCH ×4 (02:00→20:10)
--- NOTE | 2021-09-06 03:02 | NUR ---
0200 cardizem PO held per parameters for low blood pressure 95/63
[2021-09-06] MEDS: normal saline 1000ml 1,000 ML IV SCH ×2 (03:56→23:47)
--- NOTE | 2021-09-06 05:34 | NUR ---
OXY IR given last night at 2052 with night medications. computer during med pass before saving and pill packs were already discarded. all the scheduled medications were manually clicked but this one was missed since it was down in the PRNs. pt is asking for more pain medication at this time and it was just noticed that the last dose was not documented. this note is the only way to document this per charge nurse.
[2021-09-06] MEDS: oxyCODONE IR 5mg (immed. release) tablet NG PRN ×2 (05:47→20:09)
[2021-09-06 06:00] VITALS: BP 112/69
[2021-09-06 07:24] LABS: BASOPHILS # (AUTO) 0.1 X10'3 (0-0.2); BASOPHILS % (AUTO) 0.9 % (0-1); EOSINOPHILS # (AUTO) 0.2 X10'3 (0-0.9); EOSINOPHILS % (AUTO) 2.7 % (0-6); HEMOGLOBIN 7.4 g/dl (12.0-16.0); LYMPHOCYTES # (AUTO) 1.1 X10'3 (1.1-4.8); LYMPHOCYTES % (AUTO) 11.7 % (21-51); MEAN CORPUSCULAR HEMOGLOBIN 30.4 PG (27.0-31.0); MEAN CORPUSCULAR HGB CONC 32.1 g/dL (33.0-36.5); MEAN CORPUSCULAR VOLUME 94.7 FL (78-98); MEAN PLATELET VOLUME 8.6 FL (7.4-10.4); MONOCYTES # (AUTO) 0.8 X10'3 (0-0.9); MONOCYTES % (AUTO) 8.3 % (2-12); NEUTROPHILS # (AUTO) 6.9 X10'3 (1.8-7.7); NEUTROPHILS % (AUTO) 76.4 % (42-75); PLATELET COUNT 184 X10'3 (140-440); RED BLOOD COUNT 2.42 X10'6 (4.20-5.60)
[2021-09-06] MEDS: lactose-reduced food (Ensure Enlive) - 237ml bottle PO SCH ×5 (08:00→20:34)
[2021-09-06] MEDS: docusate sodium 100mg/10ml UD cup NG SCH ×3 (08:00→20:00)
[2021-09-06] MEDS: K and/or MAG REPLACEMENT MC SCH ×4 (08:00→20:33)
[2021-09-06] MEDS: pregabalin 75mg capsule NG SCH ×2 (08:09→20:10)
[2021-09-06] MEDS: apixaban 2.5mg tablet NG SCH ×2 (08:09→20:09)
[2021-09-06] MEDS: morphine ER 15mg tablet PO SCH ×2 (08:09→20:09)
[2021-09-06] MEDS: lactobacillus rhamnosus 10,000 MMU CELLS/CAPSULE NG SCH ×2 (08:09→20:09)
[2021-09-06 08:16] LABS: ALANINE AMINOTRANSFERASE 18 U/L (12-78); ALBUMIN 1.6 G/DL (3.4-5.0); ALBUMIN/GLOBULIN RATIO 0.4 (1.1-1.5); ALKALINE PHOSPHATASE 810 IU/L (46-116); ANION GAP 10 (8-16); ASPARTATE AMINO TRANSFERASE 40 U/L (10-37); BILIRUBIN,TOTAL 0.4 MG/DL (0.1-1.0); BLOOD UREA NITROGEN 10 MG/DL (7-18); BUN/CREATININE RATIO 15.9 (6.6-38.0); CALCIUM 8.1 MG/DL (8.5-10.1); CHLORIDE 103 MMOL/L (99-107); CREATININE 0.63 MG/DL (0.40-0.90); GLUCOSE 93 MG/DL (70-104); MAGNESIUM 1.8 MG/DL (1.5-2.4); PHOSPHORUS 2.9 MG/DL (2.3-4.5); POTASSIUM 3.7 MMOL/L (3.5-5.1); SODIUM 139 MMOL/L (135-145); TOTAL CARBON DIOXIDE 26.1 MMOL/L (24-32); TOTAL PROTEIN 5.9 G/DL (6.4-8.2); eGFR > 90 ML/MIN
[2021-09-06 11:00] VITALS: BP 113/81
[2021-09-06 15:00] VITALS: BP 116/78
--- NOTE | 2021-09-06 16:24 | NUR ---
F/u 09/06: Pt regressed to pureed/thin diet this AM per MACHINE REPAIR PERSON recs. Continues to refuse majority of all meals/ONS past 7 days not meeting needs. Remains ALOC AOx2 now DX dementia per EMR. SAMMIE paged MD regarding NG feeds given functional gut and inadequate intake hx; awaiting reply. Noted pt first scaled wt taken BMI 17.0. TF recs below in case to start using IBW. LBM 09/05 diarrhea w/ colace ordered and held per EMR; may benefit from anti-diarrheal. Will continue to monitor for nutrition needs. Recommendations: 1. Continue pureed/thin diet per MACHINE REPAIR PERSON/MD recs; Ensure Enlive TIDWM per MD; encourage PO 2. Recommend EN if within patient's POC given refusing all meals/ONS past 7 days w/ severe malnutrition already on admit. 3. IF TF; Jevity 1.2 at 65ml/hr goal to provide 1560ml volume/day, 1872 kcals, 1264ml water, and 87g protein. 4. IF TF; additional water flush 100ml Q4H 5. Bowel care per rx; consider routine anti-diarrheal given diarrhea per MD discretion 6. weekly wts Addendum: 09/06/21 at [address] Amended: Links added.
[2021-09-06 18:00] VITALS: BP 135/15
--- NOTE | 2021-09-06 18:07 | NUR ---
Problems reprioritized. Patient report given, questions answered & plan of care reviewed with Mariel CASTILLO.
[2021-09-06] MEDS: CefTRIAXone/D5W-Rocephin 1gm 50 ML IV SCH (20:09)
[2021-09-06] MEDS: LORazepam 2 mg/ml vial IV PRN (20:09)
[2021-09-06 22:00] VITALS: BP 129/79
[2021-09-07 02:00] VITALS: BP 127/70
[2021-09-07] MEDS: diltiazem 30mg tablet PO SCH ×4 (02:21→19:03)
[2021-09-07 06:00] VITALS: BP 130/68
[2021-09-07] MEDS: docusate sodium 100mg/10ml UD cup NG SCH ×2 (08:00→12:44)
[2021-09-07] MEDS: K and/or MAG REPLACEMENT MC SCH ×3 (08:00→19:19)
[2021-09-07 08:28] LABS: BASOPHILS # (AUTO) 0.1 X10'3 (0-0.2); BASOPHILS % (AUTO) 1.1 % (0-1); EOSINOPHILS # (AUTO) 0.2 X10'3 (0-0.9); EOSINOPHILS % (AUTO) 2.4 % (0-6); LYMPHOCYTES # (AUTO) 0.8 X10'3 (1.1-4.8); LYMPHOCYTES % (AUTO) 8.5 % (21-51); MEAN CORPUSCULAR HEMOGLOBIN 31.1 PG (27.0-31.0); MEAN CORPUSCULAR HGB CONC 33.2 g/dL (33.0-36.5); MEAN CORPUSCULAR VOLUME 93.7 FL (78-98); MEAN PLATELET VOLUME 8.8 FL (7.4-10.4); MONOCYTES # (AUTO) 0.8 X10'3 (0-0.9); MONOCYTES % (AUTO) 8.4 % (2-12); NEUTROPHILS # (AUTO) 7.4 X10'3 (1.8-7.7); NEUTROPHILS % (AUTO) 79.6 % (42-75); PLATELET COUNT 180 X10'3 (140-440); RED BLOOD COUNT 2.26 X10'6 (4.20-5.60); RED CELL DISTRIBUTION WIDTH 16.9 % (11.5-14.5); WHITE BLOOD COUNT 9.3 X10'3 (4.5-11.0)
[2021-09-07 08:32] LABS: HEMATOCRIT 21.2 % (35.0-45.0)
[2021-09-07 08:40] LABS: ALANINE AMINOTRANSFERASE 19 U/L (12-78); ALBUMIN 1.6 G/DL (3.4-5.0); ALBUMIN/GLOBULIN RATIO 0.4 (1.1-1.5); ALKALINE PHOSPHATASE 755 IU/L (46-116); ANION GAP 12 (8-16); ASPARTATE AMINO TRANSFERASE 41 U/L (10-37); BILIRUBIN,TOTAL 0.4 MG/DL (0.1-1.0); BLOOD UREA NITROGEN 9 MG/DL (7-18); BUN/CREATININE RATIO 16.7 (6.6-38.0); CALCIUM 8.4 MG/DL (8.5-10.1); CHLORIDE 102 MMOL/L (99-107); CREATININE 0.54 MG/DL (0.40-0.90); GLUCOSE 97 MG/DL (70-104); MAGNESIUM 1.7 MG/DL (1.5-2.4); PHOSPHORUS 2.9 MG/DL (2.3-4.5); POTASSIUM 3.4 MMOL/L (3.5-5.1); SODIUM 139 MMOL/L (135-145); TOTAL CARBON DIOXIDE 25.5 MMOL/L (24-32); TOTAL PROTEIN 5.9 G/DL (6.4-8.2); eGFR > 90 ML/MIN
--- NOTE | 2021-09-07 08:52 | NUR ---
PAGER ID: [phone] MESSAGE: [id number] Christopher Sexton/Willie 7.0/21.2. Allison [phone]
[2021-09-07] MEDS: pregabalin 75mg capsule NG SCH ×2 (09:34→19:03)
[2021-09-07] MEDS: apixaban 2.5mg tablet NG SCH ×2 (09:34→19:03)
[2021-09-07] MEDS: morphine ER 15mg tablet PO SCH ×2 (09:34→19:21)
[2021-09-07 11:00] VITALS: BP 123/75
[2021-09-07 11:14] LABS: HEMATOCRIT 22.4 % (35.0-45.0); HEMOGLOBIN 7.3 g/dl (12.0-16.0); MEAN CORPUSCULAR HEMOGLOBIN 30.6 PG (27.0-31.0); MEAN CORPUSCULAR HGB CONC 32.8 g/dL (33.0-36.5); MEAN CORPUSCULAR VOLUME 93.2 FL (78-98); MEAN PLATELET VOLUME 8.2 FL (7.4-10.4); PLATELET COUNT 212 X10'3 (140-440); RED CELL DISTRIBUTION WIDTH 17.1 % (11.5-14.5); WHITE BLOOD COUNT 10.9 X10'3 (4.5-11.0)
[2021-09-07] MEDS ORDERED: magnesium 4gm in 100ml NS 100 ML IV PRN (12:00)
[2021-09-07] MEDS ORDERED: magnesium Cl slow-release 64mg tablet PO PRN (12:00)
[2021-09-07] MEDS ORDERED: potassium Cl 40MEQ/1/2NS 520ml 520 ML IV PRN (12:00)
[2021-09-07] MEDS ORDERED: potassium Cl 20 mEq SR tablet PO PRN (12:00)
[2021-09-07] MEDS: lactobacillus rhamnosus 10,000 MMU CELLS/CAPSULE NG SCH ×2 (12:46→19:19)
[2021-09-07] MEDS: potassium Cl 20 mEq SR tablet PO PRN ×3 (12:46→23:25)
[2021-09-07 15:00] VITALS: BP 105/94
[2021-09-07] MEDS: normal saline 1000ml 1,000 ML IV SCH (15:07)
[2021-09-07 17:56] LABS: OCCULT BLOOD STOOL NEGATIVE (Neg)
[2021-09-07 18:00] VITALS: BP 131/80
[2021-09-07] MEDS: lactose-reduced food (Ensure Enlive) - 237ml bottle PO SCH (18:00)
--- NOTE | 2021-09-07 18:51 | NUR ---
Problems reprioritized. Patient report given, questions answered & plan of care reviewed with Caryn CASTILLO.
[2021-09-07] MEDS: LORazepam 2 mg/ml vial IV PRN ×2 (19:05→23:24)
[2021-09-07] MEDS: CefTRIAXone/D5W-Rocephin 1gm 50 ML IV SCH (19:19)
[2021-09-07 22:00] VITALS: BP 126/78
[2021-09-08] VITALS (13 sets, daily range): BP systolic 88–129; BP diastolic 56–85
[2021-09-08] MEDS: sodium ferric gluc complex inj 125 MG in normal saline 100ml IV soln 90 ML IV SCH ×2 (00:50→08:11)
[2021-09-08] MEDS: diltiazem 30mg tablet PO SCH ×6 (01:26→20:00)
[2021-09-08] MEDS: oxyCODONE IR 5mg (immed. release) tablet NG PRN (01:26)
[2021-09-08] MEDS: normal saline 1000ml 1,000 ML IV SCH ×2 (04:34→17:48)
[2021-09-08 06:32] LABS: BASOPHILS # (AUTO) 0.1 X10'3 (0-0.2); BASOPHILS % (AUTO) 0.8 % (0-1); EOSINOPHILS # (AUTO) 0.2 X10'3 (0-0.9); EOSINOPHILS % (AUTO) 1.8 % (0-6); LYMPHOCYTES % (AUTO) 10.7 % (21-51); MEAN CORPUSCULAR HEMOGLOBIN 31.2 PG (27.0-31.0); MEAN CORPUSCULAR HGB CONC 33.1 g/dL (33.0-36.5); MEAN CORPUSCULAR VOLUME 94.3 FL (78-98); MEAN PLATELET VOLUME 8.5 FL (7.4-10.4); MONOCYTES # (AUTO) 0.9 X10'3 (0-0.9); NEUTROPHILS # (AUTO) 7.6 X10'3 (1.8-7.7); NEUTROPHILS % (AUTO) 77.7 % (42-75); PLATELET COUNT 195 X10'3 (140-440); RED BLOOD COUNT 2.24 X10'6 (4.20-5.60); WHITE BLOOD COUNT 9.8 X10'3 (4.5-11.0)
--- NOTE | 2021-09-08 06:36 | NUR ---
Problems reprioritized. Patient report given, questions answered & plan of care reviewed with Nina CASTILLO.
[2021-09-08 06:43] LABS: HEMATOCRIT 21.2 % (35.0-45.0)
[2021-09-08 06:48] LABS: ALANINE AMINOTRANSFERASE 21 U/L (12-78); ALBUMIN 1.5 G/DL (3.4-5.0); ALBUMIN/GLOBULIN RATIO 0.3 (1.1-1.5); ALKALINE PHOSPHATASE 735 IU/L (46-116); ANION GAP 11 (8-16); ASPARTATE AMINO TRANSFERASE 42 U/L (10-37); BILIRUBIN,TOTAL 0.5 MG/DL (0.1-1.0); BLOOD UREA NITROGEN 9 MG/DL (7-18); BUN/CREATININE RATIO 16.7 (6.6-38.0); CALCIUM 8.4 MG/DL (8.5-10.1); CHLORIDE 103 MMOL/L (99-107); CREATININE 0.54 MG/DL (0.40-0.90); GLUCOSE 101 MG/DL (70-104); MAGNESIUM 1.7 MG/DL (1.5-2.4); PHOSPHORUS 2.2 MG/DL (2.3-4.5); POTASSIUM 4.3 MMOL/L (3.5-5.1); SODIUM 138 MMOL/L (135-145); TOTAL CARBON DIOXIDE 24.5 MMOL/L (24-32); TOTAL PROTEIN 6.1 G/DL (6.4-8.2); eGFR > 90 ML/MIN
[2021-09-08] MEDS: docusate sodium 100mg/10ml UD cup NG SCH ×2 (08:00→20:00)
[2021-09-08] MEDS: lactose-reduced food (Ensure Enlive) - 237ml bottle PO SCH ×3 (08:00→18:33)
[2021-09-08] MEDS: K and/or MAG REPLACEMENT MC SCH ×2 (08:00→19:27)
--- NOTE | 2021-09-08 08:07 | NUR ---
PAGER ID: [phone] MESSAGE: [id number] Christopher Estevez&Willie 7.0 & 21.2. Allison [phone]
[2021-09-08] MEDS: lactobacillus rhamnosus 10,000 MMU CELLS/CAPSULE NG SCH ×2 (08:22→20:00)
[2021-09-08] MEDS: apixaban 2.5mg tablet NG SCH ×2 (08:22→19:25)
[2021-09-08] MEDS: morphine ER 15mg tablet PO SCH ×2 (08:22→19:25)
[2021-09-08] MEDS: pregabalin 75mg capsule NG SCH ×2 (08:23→19:25)
[2021-09-08 11:41] LABS: MEAN CORPUSCULAR HEMOGLOBIN 30.9 PG (27.0-31.0); MEAN CORPUSCULAR HGB CONC 32.9 g/dL (33.0-36.5); MEAN PLATELET VOLUME 8.3 FL (7.4-10.4); PLATELET COUNT 182 X10'3 (140-440); RED BLOOD COUNT 2.19 X10'6 (4.20-5.60); RED CELL DISTRIBUTION WIDTH 17.1 % (11.5-14.5); WHITE BLOOD COUNT 9.1 X10'3 (4.5-11.0)
[2021-09-08 11:46] LABS: HEMATOCRIT 20.6 % (35.0-45.0); HEMOGLOBIN 6.8 g/dl (12.0-16.0)
--- NOTE | 2021-09-08 12:25 | NUR ---
PAGER ID: [phone] MESSAGE: [id number] Christopher Chiang&Willie 6.8 &20.6. Allison [phone]
--- NOTE | 2021-09-08 14:52 | NUR ---
PAGER ID: [phone] MESSAGE: [id number] Herb- Too weak to take 1400 PO Cardizem. HR 117-120s. Allison [phone]
[2021-09-08] MEDS ORDERED: diltiazem 5mg/ml 5ml inj. IV ONE ×2 (15:35→20:35)
[2021-09-08] MEDS ORDERED: diltiazem-NS 100mg/100ml 100 ML IV SCH (15:35)
--- NOTE | 2021-09-08 15:58 | NUR ---
PAGER ID: [phone] MESSAGE: [id number] [place]- BP 100/70. Continue Yamila eugene? Allison [phone]
[2021-09-08] MEDS ORDERED: metoprolol tartrate 1mg/ml inj IV ONE (16:05)
--- NOTE | 2021-09-08 17:07 | NUR ---
1640-Blood transfusion started. Baseline vitals taken. Temperature 99.5 Axillary. 1650 temperature 101.3 Axillary. 1653 temperature 101.9 ax. Infusion stopped and chest port started back on NS continuous infusion as per order. Dr. Begum made aware and awaiting orders. No signs of rash or hives. lungs sounds and other vitals baseline. See transfusions for full set of vitals.
--- NOTE | 2021-09-08 17:08 | NUR ---
PAGER ID: [phone] MESSAGE: PLEASE CALL PCU REGARDING POSSIBLE BLOOD TRANSFUSION REACTION ON [facility]G [facility]. THANK YOU MARTHA SPRAGUE
--- NOTE | 2021-09-08 17:19 | NUR ---
DR PAVON RESPONDED TO PAGE. ORDERED TYLENOL TO BE GIVEN. HOLD TRANSFUSION FOR AN HOUR THEN RESTART. CONTINUE TO MONITOR FOR REACTION.
[2021-09-08] MEDS ORDERED: acetaminophen 650mg rectal suppository RC ONE (17:20)
--- NOTE | 2021-09-08 18:00 | NUR ---
Rectal tylenol given 1730. Blood transfusion restarted 1800. See transfusion flow sheet for full set of vitals.
--- NOTE | 2021-09-08 18:33 | NUR ---
Problems reprioritized. Patient report given, questions answered & plan of care reviewed with Caryn CASTILLO.
--- NOTE | 2021-09-08 19:15 | NUR ---
PATIENT VS ASSESSED. PER DAY SHIFT RN , PATIENT HAD A FEVER. PRBC TRANFUSION WAS STOPPED FOR AN HOUR THEN RESTARTED. PATIENT CURRENT VS DOCUMENTED. WILL CONTINUE MONITOR PATIENT.
--- NOTE | 2021-09-08 19:43 | NUR ---
patient has not been eating. I tried to assist her with dinner. Patient refuses solid food. Dran only a few sips of ensure, 5-10%. Patient is anxious. crying about ca dx. She says doesn't want no one to feel sorry for her. she also refuses oral med. Will call MD for possible IV meds. Sitter at bedside. All safety in place. Recent VS documented.
[2021-09-08] MEDS ORDERED: diltiazem 5mg/ml 5ml inj. IV PRN (20:30)
[2021-09-08] MEDS: LORazepam 2 mg/ml vial IV PRN (21:08)
[2021-09-08] MEDS ORDERED: acetaminophen 650mg rectal suppository RC PRN (22:10)
[2021-09-08] MEDS ORDERED: pantoprazole 40 MG vial IV ONE (22:35)
[2021-09-09 02:00] VITALS: BP 113/79
[2021-09-09] MEDS: diltiazem 30mg tablet PO SCH ×2 (02:00→08:03)
[2021-09-09] MEDS: LORazepam 2 mg/ml vial IV PRN ×2 (03:04→11:22)
[2021-09-09 06:00] VITALS: BP 106/78
--- NOTE | 2021-09-09 06:35 | NUR ---
Patient in room PCU 3012. I have received report from Ion CASTILLO and had the opportunity to ask questions and assume patient care.
--- NOTE | 2021-09-09 06:36 | NUR ---
PATIENT IN NO APPARENT DISTRESS NOTED. REPORT GIVEN TO ANNA PRICE.
[2021-09-09 06:43] LABS: BASOPHILS # (AUTO) 0.1 X10'3 (0-0.2); BASOPHILS % (AUTO) 0.8 % (0-1); EOSINOPHILS # (AUTO) 0.3 X10'3 (0-0.9); EOSINOPHILS % (AUTO) 2.9 % (0-6); HEMATOCRIT 24.8 % (35.0-45.0); HEMOGLOBIN 8.1 g/dl (12.0-16.0); LYMPHOCYTES % (AUTO) 11.4 % (21-51); MEAN CORPUSCULAR HGB CONC 32.9 g/dL (33.0-36.5); MEAN CORPUSCULAR VOLUME 94.3 FL (78-98); MEAN PLATELET VOLUME 8.7 FL (7.4-10.4); MONOCYTES # (AUTO) 0.8 X10'3 (0-0.9); MONOCYTES % (AUTO) 8.7 % (2-12); NEUTROPHILS # (AUTO) 6.8 X10'3 (1.8-7.7); NEUTROPHILS % (AUTO) 76.2 % (42-75); PLATELET COUNT 182 X10'3 (140-440); RED BLOOD COUNT 2.63 X10'6 (4.20-5.60); RED CELL DISTRIBUTION WIDTH 16.5 % (11.5-14.5); WHITE BLOOD COUNT 8.9 X10'3 (4.5-11.0)
[2021-09-09 06:52] LABS: ALANINE AMINOTRANSFERASE 15 U/L (12-78); ALBUMIN 1.6 G/DL (3.4-5.0); ALBUMIN/GLOBULIN RATIO 0.3 (1.1-1.5); ALKALINE PHOSPHATASE 657 IU/L (46-116); ANION GAP 14 (8-16); ASPARTATE AMINO TRANSFERASE 34 U/L (10-37); BILIRUBIN,TOTAL 0.9 MG/DL (0.1-1.0); BLOOD UREA NITROGEN 7 MG/DL (7-18); CALCIUM 8.6 MG/DL (8.5-10.1); CHLORIDE 103 MMOL/L (99-107); CREATININE 0.54 MG/DL (0.40-0.90); GLUCOSE 80 MG/DL (70-104); MAGNESIUM 1.8 MG/DL (1.5-2.4); POTASSIUM 3.8 MMOL/L (3.5-5.1); SODIUM 139 MMOL/L (135-145); TOTAL CARBON DIOXIDE 21.8 MMOL/L (24-32); TOTAL PROTEIN 6.2 G/DL (6.4-8.2); eGFR > 90 ML/MIN
[2021-09-09] MEDS: normal saline 1000ml 1,000 ML IV SCH (07:05)
[2021-09-09] MEDS: morphine ER 15mg tablet PO SCH ×2 (07:54→20:02)
[2021-09-09] MEDS: pregabalin 75mg capsule NG SCH (07:55)
[2021-09-09] MEDS: lactobacillus rhamnosus 10,000 MMU CELLS/CAPSULE NG SCH (07:58)
[2021-09-09] MEDS ORDERED: pantoprazole 40 MG vial IV SCH (08:00)
[2021-09-09] MEDS: docusate sodium 100mg/10ml UD cup NG SCH (08:00)
[2021-09-09] MEDS: K and/or MAG REPLACEMENT MC SCH (08:00)
[2021-09-09] MEDS: lactose-reduced food (Ensure Enlive) - 237ml bottle PO SCH (08:00)
[2021-09-09] MEDS: sodium ferric gluc complex inj 125 MG in normal saline 100ml IV soln 90 ML IV SCH (08:02)
--- NOTE | 2021-09-09 08:42 | NUR ---
PAGER ID: [phone] MESSAGE: Kasi Soriano Room 3012C is having frequent, loose stool. may we have immodium or something else? Thanks Sheila ext [phone]
[2021-09-09] MEDS ORDERED: loperamide 2mg capsule PO PRN (09:30)
--- NOTE | 2021-09-09 12:12 | NUR ---
PAGER ID: [phone] MESSAGE: [facility] have something for breakthrough pain? Sheila ext [phone]
--- NOTE | 2021-09-09 13:08 | NUR ---
PAGER ID: [phone] MESSAGE: For Patient Myranda Tolentino room 3012C, would you like me to cancel all orders besides comfort measures? Please advise Sheila ext [phone]
[2021-09-09] MEDS: morphine 2 MG/ML inj. syringe IV PRN ×2 (17:07→20:07)
[2021-09-09 18:00] VITALS: BP 127/81
--- NOTE | 2021-09-09 18:26 | NUR ---
Problems reprioritized. Patient report given, questions answered & plan of care reviewed with Jolie CASTILLO.
--- NOTE | 2021-09-09 20:00 | NUR ---
Comfort measure in place, pt reposition and medicated for pain. Respiratory status stable, no signs of distress.
[2021-09-10] MEDS: morphine 2 MG/ML inj. syringe IV PRN ×4 (00:13→14:13)
--- NOTE | 2021-09-10 03:38 | NUR ---
2300 Pt asleep, no signs of pain, sitter at bedside. Continue comfort measure.
[2021-09-10 06:00] VITALS: BP 137/89
--- NOTE | 2021-09-10 06:14 | NUR ---
Problems reprioritized. Patient report given, questions answered & plan of care reviewed with Jolie CASTILLO.
--- NOTE | 2021-09-10 06:26 | NUR ---
Patient in room PCU 3012. I have received report from Jolie CASTILLO and had the opportunity to ask questions and assume patient care.
--- NOTE | 2021-09-10 07:16 | NUR ---
F/u 09/10: Pt placed on comfort care 09/09. Continues w/ 0% intake, LBM 09/09 noted to be diarrhea, receiving PRN imodium. Will continue to monitor. Recommendations: 1. Bowel care per rx; consider routine anti-diarrheal given diarrhea per MD discretion Addendum: 09/10/21 at [address] Amended: Links added.
[2021-09-10] MEDS: morphine ER 15mg tablet PO SCH (08:18)
[2021-09-10] MEDS: oxyCODONE IR 5mg (immed. release) tablet NG PRN (11:50)
--- NOTE | 2021-09-10 13:45 | NUR ---
Wound care received low elaine score alert for patient. Skin is intact and patient is now on comfort care.
[2021-09-10 16:01] VITALS: BP 124/79
--- NOTE | 2021-09-10 16:09 | NUR ---
PAGER ID: [phone] MESSAGE: supply room clerk for Myranda Edwardsno 3012C is at 1630 & there are no prescriptions for pain meds I m concerned that there will be nothing available to her at home for pain relief upon DC as the pharmacy will not be open much longer Sheila Ragsdale91
--- NOTE | 2021-09-10 17:15 | NUR ---
Patient discharged home for hospice care per Jess and Dr Gabriel. Camarena catheter left in place per order/protocol for patient comfort during hospice care. Educational material provided that addressed catheter care, hospice and cancer pain management. Paper prescription for roxanol and percocet in the discharge folder. The importance of pain management was discussed with the patients sister, Elyssa, she verbalized understanding. Patient and belongings were transported by [employer] [facility]. Care will be assumed by [facility].
--- NOTE | 2021-09-10 17:54 | NUR ---
I agree with Preceptee Colleen CASTILLO's physical assessment and charting.
== END 2021-09-10 17:05 | disposition hospice, home (50) | DRG 720 ==
LOC: EEVIPCON 14:47 → ER 14:47 → ED HOLD 19:32 → SUR 3N 08-30 01:10 → PCU 3S 09-03 11:35
PROVIDERS: ADMIT Internal Medicine; ATTEND Internal Medicine
PROC: BW21ZZZ Computerized Tomography (CT Scan) of Abdomen and Pelvis (ICD-10-PCS; 2021-08-29)
PROC: BW28ZZZ Computerized Tomography (CT Scan) of Head (ICD-10-PCS; 2021-08-29)
PROC: BW03ZZZ Plain Radiography of Chest (ICD-10-PCS; 2021-08-29)
PROC: BW28ZZZ Computerized Tomography (CT Scan) of Head (ICD-10-PCS; 2021-09-01)
PROC: 30233N1 Transfusion of Nonautologous Red Blood Cells into Peripheral Vein, Percutaneous Approach (ICD-10-PCS; principal; 2021-09-08)
DX: A41.9 Sepsis, unspecified organism (principal); G93.41 Metabolic encephalopathy; C79.70 Secondary malignant neoplasm of unspecified adrenal gland; C48.0 Malignant neoplasm of retroperitoneum; C49.9 Malignant neoplasm of connective and soft tissue, unspecified; E87.2 Acidosis; J90 Pleural effusion, not elsewhere classified; D64.9 Anemia, unspecified; R64 Cachexia; C34.90 Malignant neoplasm of unspecified part of unspecified bronchus or lung; F03.90 Unspecified dementia, unspecified severity, without behavioral disturbance, psychotic disturbance, mood disturbance, and anxiety; E03.9 Hypothyroidism, unspecified; B96.20 Unspecified Escherichia coli [E. coli] as the cause of diseases classified elsewhere; B96.1 Klebsiella pneumoniae [K. pneumoniae] as the cause of diseases classified elsewhere; E87.6 Hypokalemia; N39.0 Urinary tract infection, site not specified; R19.7 Diarrhea, unspecified; R91.8 Other nonspecific abnormal finding of lung field; F17.210 Nicotine dependence, cigarettes, uncomplicated; Z20.822 Contact with and (suspected) exposure to COVID-19; Z90.710 Acquired absence of both cervix and uterus; Z92.21 Personal history of antineoplastic chemotherapy; Z92.3 Personal history of irradiation; Z90.49 Acquired absence of other specified parts of digestive tract; Z68.1 Body mass index [BMI] 19.9 or less, adult
CPT/HCPCS: 36415; 36430; 70450; 71045; 74176; 80053; 80305; 80320; 81001; 82140; 82272; 82728; 83540; 83550; 83605; 83735; 84100; 84132; 84145; 84443; 85025; 85027; 85384; 86644; 86885; 86900; 86901; 86920; 86945; 87040; 87077; 87081; 87088; 87186; 87324; 87449; 87635; 92508; 92616; 93005; 97110; 97116; 97162; 97530; 99285; C9113; G0378; J0696; J2060; J2270; J2405; J2916; J3475; J3480; J3490; J7030; P9016